=== PATIENT | male | born 2000 | race Caucasian/White ===

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

== ENCOUNTER 2022-04-16 17:40 | Emergency (ER) | payer MEDICAID, OTHER ==
[~2022-04-16] VITALS: Ht 170.2 cm; Wt 67.0 kg
[2022-04-16] MEDS ORDERED: ACETAMINOPHEN 500 MG TABLET PO ONE (18:30)
[2022-04-16] MEDS: KETOROLAC TROMETHAMINE 60 MG/2 ML VIAL IM ONE ×2 (19:07→19:38)
[2022-04-16] MEDS ORDERED: IBUP-1554 PO (20:43)
[2022-04-16] MEDS ORDERED: ACET-66 PO (20:43)
[2022-04-16 21:05] VITALS: BP 114/59
== END 2022-04-16 21:13 | disposition home or self-care (01) ==
LOC: EMS 17:44
DX: S83.91XA Sprain of unspecified site of right knee, initial encounter (principal); X58.XXXA Exposure to other specified factors, initial encounter; Y93.89 Activity, other specified; Y92.89 Other specified places as the place of occurrence of the external cause; Y99.8 Other external cause status
CPT/HCPCS: 99283; J1885